=== PATIENT | male | born 1955 | race Hispanic/Latino ===

== ENCOUNTER 2020-03-08 21:30 | Emergency (ER) | payer MEDICARE ==
[2020-03-08 21:52] VITALS: BP 140/84
[2020-03-08] MEDS ORDERED: KETOROLAC 30 MG/1 ML INJ IM ONE (22:21)
--- NOTE | 2020-03-08 22:37 | Emergency Department Report ---
HPI - General Chief Complaint: Back Pain/Injury Time Seen by Provider: 03/08/20 22:21 - HPI HPI: This is a 64-year-old male presents to the emergency department with complaint of some pain to the right lower back and the right thigh that has been going on for the past 3 to 4 months. The patient says that he came into the emergency department this evening because "I could not stand the pain." He denies any numbness or paresthesias, swelling to the extremities, rash or lesions, fever. Patient is able to ambulate and has full range of motion. He denies any fall, injury or any known inciting event. He denies any past medical history. He has tried some Tylenol for symptoms without any relief. ED Past Medical Hx - Past Medical History Previous Medical History?: Yes Additional medical history: Back pain - Surgical History Past Surgical History?: No - Social History Smoking Status: Never Smoker Substance Use Type: None - Medications Home Medications: Home Medications Medication Instructions Recorded Confirmed Last Taken Type Cyclobenzaprine [Flexeril] 10 mg PO TID PRN #12 tablet 03/08/20 Unknown Rx Ibuprofen [Motrin 800 MG tab] 800 mg PO Q8HR PRN #20 tablet 03/08/20 Unknown Rx ED Review of Systems ROS: Stated complaint: BACK PAIN Other details as noted in HPI Comment: All other systems reviewed and negative Constitutional: denies: chills, fever Respiratory: denies: shortness of breath Cardiovascular: denies: chest pain Gastrointestinal: denies: abdominal pain Musculoskeletal: back pain, myalgia Neurological: denies: numbness, paresthesias Physical Exam - Physical Exam Vital Signs: Vital Signs 03/08/20 03/08/20 21:46 21:59 Temperature 98.1 F Pulse Rate 65 Respiratory 18 Rate Blood Pressure 140/84 O2 Sat by Pulse 98 Oximetry Physical Exam: GENERAL: The patient is well-developed well-nourished. HENT: Normocephalic. Atraumatic. Patient has moist mucous membranes. EYES: Extraocular motions are intact. NECK: Supple. Trachea is midline. CHEST/LUNGS: Clear to auscultation. There is no respiratory distress noted. HEART/CARDIOVASCULAR: Regular. There is no tachycardia. ABDOMEN: Abdomen is soft, nontender. Patient has normal bowel sounds. SKIN: Skin is warm and dry. NEURO: The patient is awake, alert, and oriented. The patient is cooperative. The patient has no focal neurologic deficits. Normal speech. Muscle strength 5 out of 5 upper and lower extremities bilaterally. MUSCULOSKELETAL: There is no tenderness or deformity. There is no limitation range of motion. BACK: No midline thoracic or lumbar tenderness to palpation. There is some reproducible right paraspinal lumbar tenderness to palpation. ED Course Vital Signs 03/08/20 03/08/20 21:46 21:59 Temperature 98.1 F Pulse Rate 65 Respiratory 18 Rate Blood Pressure 140/84 O2 Sat by Pulse 98 Oximetry ED Medical Decision Making - Radiology Data Radiology results: report reviewed LUMBAR SPINE HISTORY: Low back pain COMPARISON: None. TECHNIQUE: 3 view(s) of the lumbar spine obtained. FINDINGS: Vertebrae: Normal alignment. No displaced fracture or significant abnormality. Disc Spaces:Moderate multilevel degenerative disc disease, most prominent at L5-S1. Facet Joints:Moderate facet hypertrophy in the mid to lower lumbar spine. Additional findings: Probable calcified gallstone. Aortic atherosclerosis. IMPRESSION: 1. Moderate multilevel degenerative change of the spine. No acute abnormality. - Medical Decision Making This patient presents to the emergency department with complaint of right lower back pain with some radiation down towards the right hip and thigh that has been going on for many months. Patient does not have any fall, trauma or any inciting event. He denies any numbness or paresthesias, problems with bowel or bladder, difficulty with ambulation, or any other neurological deficits. He denies any swelling to the right lower extremity, rash or lesions. There is no midline thoracic or lumbar tenderness to palpation, but there is reproducible right paraspinal lumbar tenderness to palpation. An x-ray was done that shows multi level degenerative changes, but otherwise no fracture, subluxation, or any other acute processes. Patient was given a shot of Toradol with some improvement. His pain score is down to a 4 out of 10. He has no abdominal pain. There is no palpable midline abdominal mass. The pain is reproducible to palpation. It appears to be something musculoskeletal with perhaps some radicular pain or peripheral neuropathy. The patient will be given a prescription for anti-inflammatories and a muscle relaxer. He has been given referrals for outpatient orthopedic follow-up. He will return to the emergency department with any worsening of his symptoms or with any acute distress. Critical Care Time: No Critical care attestation.: If time is entered above; I have spent that time in minutes in the direct care of this critically ill patient, excluding procedure time. ED Disposition Clinical Impression: Back pain Qualifiers: Back pain location: low back pain Chronicity: unspecified Back pain laterality: right Sciatica presence: unspecified whether sciatica present Qualified Code(s): M54.5 - Low back pain Osteoarthritis of lumbar spine Qualifiers: Spinal osteoarthritis complication: unspecified spinal osteoarthritis Qualified Code(s): M47.816 - Spondylosis without myelopathy or radiculopathy, lumbar region Disposition: TO HOME OR SELFCARE Is pt being admited?: No Condition: Stable Instructions: Radicular Pain, Chronic Back Pain Additional Instructions: Please follow-up with a primary care physician in the next few days. I am giving you a referral for to local orthopedic groups, Dr. Vaughn and Darrick, to follow-up regarding your back pain. Return to the emergency department with any worsening of your symptoms, new or concerning symptoms not addressed during this current emergency department visit, or with any acute distress. You have been prescribed a medication that is sedating and therefore should not be taken prior to driving, working, and responsible for children and in no way should be mixed with alcohol of any quantity. Prescriptions: Cyclobenzaprine [Flexeril] 10 mg PO TID PRN #12 tablet PRN Reason: Muscle Spasm Ibuprofen [Motrin 800 MG tab] 800 mg PO Q8HR PRN #20 tablet PRN Reason: Pain , Severe (7-10) Referrals: PRIMARY CAREMD [Primary Care Provider] - 3-5 Days TRACEY VAUGHN MD [Staff Physician] - 3-5 Days [facility] [Provider Group] - 3-5 Days Time of Disposition: 23:23
--- NOTE | 2020-03-08 23:12 | XRay Report ---
LUMBAR SPINE HISTORY: Low back pain COMPARISON: None. TECHNIQUE: 3 view(s) of the lumbar spine obtained. FINDINGS: Vertebrae: Normal alignment. No displaced fracture or significant abnormality. Disc Spaces:Moderate multilevel degenerative disc disease, most prominent at L5-S1. Facet Joints:Moderate facet hypertrophy in the mid to lower lumbar spine. Additional findings: Probable calcified gallstone. Aortic atherosclerosis. IMPRESSION: 1. Moderate multilevel degenerative change of the spine. No acute abnormality. Signer Name: Delisa Adamson MD Signed: 03/08/2020 11:07 PM Workstation Name: [id number]
== END 2020-03-08 23:40 | disposition home or self-care (01) ==
LOC: ED 21:30
DX: M47.896 Other spondylosis, lumbar region (principal)
CPT/HCPCS: 72100; 96372; 99283; J1885

== ENCOUNTER 2020-06-14 22:05 | Emergency (ER) | payer MEDICARE ==
[2020-06-14 22:18] VITALS: BP 153/90
--- NOTE | 2020-06-14 22:24 | Emergency Department Report ---
ED General Adult HPI - General Chief complaint: Extremity Injury, Lower Stated complaint: LEG PAIN Time Seen by Provider: 06/14/20 22:18 Source: patient Mode of arrival: Stretcher Limitations: No Limitations - History of Present Illness Initial comments: 64-year-old male with asthma department complaining of chronic atraumatic history of right hip and back pain which is flared up and causing some aggravation on yesterday and today she presented to the emergency department seeking pain medication. Reports no numbness, no tingling, no loss of bowel or bladder, no saddle paresthesias, no fever, chills, sweats, no chest pain, no palpitations, no hematuria, no dysuria. Radiation: non-radiation Quality: dull Consistency: constant Improves with: none Worsens with: none Associated Symptoms: denies other symptoms - Related Data Previous Rx's Medication Instructions Recorded Last Taken Type Cyclobenzaprine [Flexeril] 10 mg PO TID PRN #12 tablet 03/08/20 Unknown Rx Ibuprofen [Motrin 800 MG tab] 800 mg PO Q8HR PRN #20 tablet 03/08/20 Unknown Rx Meloxicam [Mobic] 15 mg PO DAILY #10 tablet 06/14/20 Unknown Rx Allergies Allergy/AdvReac Type Severity Reaction Status Date / Time No Known Allergies Allergy Unverified 05/28/13 08:30 ED Review of Systems ROS: Stated complaint: LEG PAIN Other details as noted in HPI Comment: All other systems reviewed and negative ED Past Medical Hx - Past Medical History Previous Medical History?: Yes Additional medical history: Back pain. Chronic leg pain - Surgical History Past Surgical History?: No - Social History Smoking Status: Current Every Day Smoker Substance Use Type: None - Medications Home Medications: Home Medications Medication Instructions Recorded Confirmed Last Taken Type Cyclobenzaprine [Flexeril] 10 mg PO TID PRN #12 tablet 03/08/20 Unknown Rx Ibuprofen [Motrin 800 MG tab] 800 mg PO Q8HR PRN #20 tablet 03/08/20 Unknown Rx Meloxicam [Mobic] 15 mg PO DAILY #10 tablet 06/14/20 Unknown Rx ED Physical Exam - General Limitations: No Limitations General appearance: alert, in no apparent distress - Head Head exam: Present: atraumatic, normocephalic - Eye Eye exam: Present: normal appearance, PERRL, EOMI Pupils: Present: normal accommodation - ENT ENT exam: Present: normal exam, normal orophraynx, mucous membranes moist, TM's normal bilaterally - Neck Neck exam: Present: normal inspection, full ROM - Respiratory Respiratory exam: Present: normal lung sounds bilaterally. Absent: respiratory distress - Cardiovascular Cardiovascular Exam: Present: regular rate, normal rhythm. Absent: systolic murmur, diastolic murmur, rubs, gallop - GI/Abdominal GI/Abdominal exam: Present: soft, normal bowel sounds - Rectal Rectal exam: Present: deferred - Extremities Exam Extremities exam: Present: normal inspection - Back Exam Back exam: Present: normal inspection - Neurological Exam Neurological exam: Present: alert, oriented X3 - Psychiatric Psychiatric exam: Present: normal affect, normal mood - Skin Skin exam: Present: warm, dry, intact, normal color. Absent: rash ED Course Vital Signs 06/14/20 22:12 Temperature 98 F Pulse Rate 91 H Respiratory 16 Rate Blood Pressure 153/90 O2 Sat by Pulse 100 Oximetry Critical care attestation.: If time is entered above; I have spent that time in minutes in the direct care of this critically ill patient, excluding procedure time. ED Disposition Clinical Impression: Chronic low back pain Disposition: DC-01 TO HOME OR SELFCARE Is pt being admited?: No Does the pt Need Aspirin: No Condition: Stable Instructions: Chronic Pain, Adult Prescriptions: Meloxicam [Mobic] 15 mg PO DAILY #10 tablet Referrals: PRIMARY CARE, [Primary Care Provider] - 3-5 Days TRACEY LOMELI MD [Staff Physician] - 3-5 Days
== END 2020-06-14 23:48 | disposition home or self-care (01) ==
LOC: ED 22:05
DX: M54.5 Low back pain (principal); G89.29 Other chronic pain; F17.200 Nicotine dependence, unspecified, uncomplicated; Z79.899 Other long term (current) drug therapy
CPT/HCPCS: 99283

== ENCOUNTER 2020-11-12 14:40 | Emergency (ER) | payer MEDICARE ==
[2020-11-12 15:52] VITALS: BP 170/97
[2020-11-12] MEDS ORDERED: HYDROcodone/ACETAMINOPHEN 10-325MG TAB PO ONE (17:37)
[2020-11-12 17:45] LABS: Basophils # (Auto) 0.1 K/mm3 (0.0-0.1); Basophils % (Auto) 1.1 % (0.0-1.8); Eosinophils # (Auto) 0.2 K/mm3 (0.0-0.4); Eosinophils % (Auto) 2.7 % (0.0-4.3); Lymphocytes # (Auto) 1.6 K/mm3 (1.2-5.4); Lymphocytes % (Auto) 22.7 % (13.4-35.0); Mean Corpuscular HGB Conc 36 % (32-34); Mean Corpuscular Volume 93 fl (84-94); Monocytes # (Auto) 0.6 K/mm3 (0.0-0.8); Monocytes % (Auto) 8.2 % (0.0-7.3); Platelet Count 157 K/mm3 (140-440); Red Blood Count 4.53 M/mm3 (3.65-5.03); Red Cell Distribution Width 13.5 % (13.2-15.2)
[2020-11-12 17:46] LABS: Hematocrit 42.1 % (35.5-45.6); Hemoglobin 15.1 gm/dl (11.8-15.2)
[2020-11-12 18:08] LABS: Alanine Aminotransferase 13 units/L (7-56); Albumin 4.5 g/dL (3.9-5); BUN/Creatinine Ratio 15; Blood Urea Nitrogen 12 mg/dL (9-20); Calcium 9.4 mg/dL (8.4-10.2); Hemolysis Index 42
--- NOTE | 2020-11-12 18:23 | XRay Report ---
XR femur 2+V RT INDICATION / CLINICAL INFORMATION: right hip/femur pain. COMPARISON: None available. FINDINGS: BONES/JOINT(S): No acute fracture or subluxation. Mild DJD in the right hip joint and right knee join t. SOFT TISSUES: No significant abnormality. ADDITIONAL FINDINGS: None. Signer Name: Shon Reyes MD Signed: 11/12/2020 6:19 PM Workstation Name: [id number]
--- NOTE | 2020-11-12 18:23 | Vascular Lab Report ---
DUPLEX DOPPLER LOWER EXTREMITY VEINS, RIGHT INDICATION / CLINICAL INFORMATION: right leg pain. TECHNIQUE: Duplex doppler imaging was performed through the veins of the right lower extremity using venous comp ression and other maneuvers. COMPARISON: None available. FINDINGS: RIGHT COMMON FEMORAL VEIN: Negative. RIGHT FEMORAL VEIN: Negative. RIGHT POPLITEAL VEIN: Negative. RIGHT CALF VEINS: Negative. ADDITIONAL FINDINGS: None. IMPRESSION: 1. No sonographic evidence for DVT in the right lower extremity. Signer Name: Shon Reyes MD Signed: 11/12/2020 6:18 PM Workstation Name: [id number]
--- NOTE | 2020-11-12 18:25 | Emergency Department Report ---
ED Lower Extremity HPI - General Chief Complaint: Extremity Problem,Nontraumatic Stated Complaint: HIP AND LEG PAIN FOR A WEEK Time Seen by Provider: 11/12/20 17:16 Source: patient Mode of arrival: Ambulatory Limitations: No Limitations - History of Present Illness Initial Comments: This is a 65-year-old male nontoxic, well nourished in appearance, no acute signs of distress presents to the ED with c/o of right hip and posterior thigh pain 2 weeks. Patient denies any injuries or trauma. Patient denies any numbness, tingling, fever, chills, nausea, vomiting, chest pain, shortness of breath, headache, stiff neck. Patient denies any joint swelling or joint redness. Patient denies decreased range of motion. Patient stated has decreased gait due to pain. Patient denies any allergies. MD Complaint: hip injury, thigh injury -: week(s) Injury: Hip: Left, Thigh: Left Severity: mild Severity scale (0 -10): 8 Improves With: immobilization Worsens With: weight bearing, movement, palpation Associated Symptoms: able to partially bear weight. denies: snap/pop sensation, swelling, numbness, tingling, unable to bear weight - Related Data Previous Rx's Medication Instructions Recorded Last Taken Type Cyclobenzaprine [Flexeril] 10 mg PO TID PRN #12 tablet 03/08/20 Unknown Rx Ibuprofen [Motrin 800 MG tab] 800 mg PO Q8HR PRN #20 tablet 03/08/20 Unknown Rx Meloxicam [Mobic] 15 mg PO DAILY #10 tablet 06/14/20 Unknown Rx Cyclobenzaprine [Flexeril] 10 mg PO QHS PRN #10 tablet 11/12/20 Unknown Rx Naproxen 500 mg PO Q12H PRN #12 tablet 11/12/20 Unknown Rx Allergies Allergy/AdvReac Type Severity Reaction Status Date / Time No Known Allergies Allergy Unverified 05/28/13 08:30 ED Review of Systems ROS: Stated complaint: HIP AND LEG PAIN FOR A WEEK Other details as noted in HPI Comment: All other systems reviewed and negative Constitutional: denies: chills, fever Eyes: denies: eye pain, eye discharge, vision change ENT: denies: ear pain, throat pain Respiratory: denies: cough, shortness of breath, wheezing Cardiovascular: denies: chest pain, palpitations Endocrine: no symptoms reported Gastrointestinal: denies: abdominal pain, nausea, diarrhea Genitourinary: denies: urgency, dysuria Musculoskeletal: denies: back pain, joint swelling, arthralgia Skin: denies: rash, lesions Neurological: denies: headache, weakness, paresthesias Psychiatric: denies: anxiety, depression Hematological/Lymphatic: denies: easy bleeding, easy bruising ED Past Medical Hx - Past Medical History Previous Medical History?: Yes Hx Diabetes: Yes Hx Psychiatric Treatment: Yes (schizophrenic, paranoia) Additional medical history: Back pain. Chronic leg pain. high cholestrol - Social History Smoking Status: Current Every Day Smoker - Medications Home Medications: Home Medications Medication Instructions Recorded Confirmed Last Taken Type Cyclobenzaprine [Flexeril] 10 mg PO TID PRN #12 tablet 03/08/20 Unknown Rx Ibuprofen [Motrin 800 MG tab] 800 mg PO Q8HR PRN #20 tablet 03/08/20 Unknown Rx Meloxicam [Mobic] 15 mg PO DAILY #10 tablet 06/14/20 Unknown Rx Cyclobenzaprine [Flexeril] 10 mg PO QHS PRN #10 tablet 11/12/20 Unknown Rx Naproxen 500 mg PO Q12H PRN #12 tablet 11/12/20 Unknown Rx ED Physical Exam - General Limitations: No Limitations General appearance: alert, in no apparent distress - Head Head exam: Present: atraumatic, normocephalic - Eye Eye exam: Present: normal appearance - Neck Neck exam: Present: normal inspection, full ROM. Absent: lymphadenopathy - Respiratory Respiratory exam: Present: normal lung sounds bilaterally. Absent: respiratory distress, wheezes, rales, rhonchi, stridor, chest wall tenderness, accessory muscle use, decreased breath sounds, prolonged expiratory - Cardiovascular Cardiovascular Exam: Present: regular rate, normal rhythm, normal heart sounds. Absent: bradycardia, tachycardia, irregular rhythm, systolic murmur, diastolic murmur, rubs, gallop - GI/Abdominal GI/Abdominal exam: Present: soft, normal bowel sounds. Absent: distended, tenderness, guarding, rebound, rigid, diminished bowel sounds - Extremities Exam Extremities exam: Present: normal inspection, full ROM, tenderness, normal capillary refill. Absent: pedal edema, joint swelling, calf tenderness - Expanded Lower Extremity Exam Left Hip exam: Present: normal inspection, full ROM, tenderness, external rotation, internal rotation, pelvic stability. Absent: swelling, abrasion, laceration, ecchymosis, deformity, crepidus, dislocation, erythema, shortening Upper Leg exam: Present: normal inspection, full ROM, tenderness. Absent: swelling, abrasion, laceration, ecchymosis, deformity, crepidus, dislocation, erythema Knee exam: Present: normal inspection, full ROM, full knee extension. Absent: tenderness, swelling, abrasion, laceration, ecchymosis, deformity, crepidus, dislocation, erythema, effusion, pain w/ pronation/supination, posterior draw sign, pain/laxity with valgus, pain/laxity with varus Lower Leg exam: Present: normal inspection, full ROM. Absent: tenderness, swelling, abrasion, laceration, ecchymosis, deformity, crepidus, dislocation, erythema, palpable cord, Cleo's sign Ankle exam: Present: normal inspection, full ROM. Absent: tenderness, swelling, abrasion, laceration, ecchymosis, deformity, crepidus, dislocation, erythema, anterior draw sign Foot/Toe exam: Present: normal inspection, full ROM. Absent: tenderness, swell ing, abrasion, laceration, ecchymosis, crepidus, dislocation, erythema, amputation, puncture wound, foreign body, calcaneal tenderness, tenderness at base of 5th metatarsal, nail avulsion, subungual hematoma Neuro vascular tendon exam: Present: no vascular compromise. Absent: pulse deficit, abnormal cap refill, sensory deficit, extremity cold to touch, pallor, abnormal 2-point discrimination, decreased fine/light touch, foot drop, significant pain with passive ROM of distal joint Gait: Positive: observed and limited by pain - Back Exam Back exam: Present: normal inspection, full ROM. Absent: tenderness, CVA tenderness (R), CVA tenderness (L), muscle spasm, paraspinal tenderness, vertebral tenderness, rash noted - Neurological Exam Neurological exam: Present: alert, oriented X3 - Psychiatric Psychiatric exam: Present: normal affect, normal mood - Skin Skin exam: Present: warm, dry, intact, normal color. Absent: rash ED Course Vital Signs 11/12/20 15:49 Temperature 98.6 F Pulse Rate 80 Respiratory 18 Rate Blood Pressure 170/97 O2 Sat by Pulse 96 Oximetry - Reevaluation(s) Reevaluation #1: 11/12/20 18:28 Patient is speaking in full sentences with no signs of distress noted. ED Lower Extremity MDM - Lab Data Result diagrams: 11/12/20 17:37 11/12/20 17:37 Lab Results 11/12/20 11/12/20 Range/Units 17:37 17:37 WBC 6.9 (4.5-11.0) K/mm3 RBC 4.53 (3.65-5.03) M/mm3 Hgb 15.1 (11.8-15.2) gm/dl Hct 42.1 (35.5-45.6) % MCV 93 (84-94) fl MCH 33 H (28-32) pg MCHC 36 H (32-34) % RDW 13.5 (13.2-15.2) % Plt Count 157 (140-440) K/mm3 Lymph % (Auto) 22.7 (13.4-35.0) % [place] % (Auto) 8.2 H (0.0-7.3) % Eos % (Auto) 2.7 (0.0-4.3) % Baso % (Auto) 1.1 (0.0-1.8) % Lymph # (Auto) 1.6 (1.2-5.4) K/mm3 [place] # (Auto) 0.6 (0.0-0.8) K/mm3 Eos # (Auto) 0.2 (0.0-0.4) K/mm3 Baso # (Auto) 0.1 (0.0-0.1) K/mm3 Seg Neutrophils % 65.3 (40.0-70.0) % Seg Neutrophils # 4.5 (1.8-7.7) K/mm3 Sodium 134 L (137-145) mmol/L Potassium 4.0 (3.6-5.0) mmol/L Chloride 98.3 (98-107) mmol/L Carbon Dioxide 29 (22-30) mmol/L Anion Gap 11 mmol/L BUN 12 (9-20) mg/dL Creatinine 0.8 (0.8-1.3) mg/dL Estimated GFR > 60 ml/min BUN/Creatinine Ratio 15 % Glucose 205 H (75-100) mg/dL Calcium 9.4 (8.4-10.2) mg/dL Total Bilirubin 0.40 (0.1-1.2) mg/dL AST 14 (5-40) units/L ALT 13 (7-56) units/L Alkaline Phosphatase 45 (35-129) units/L Total Creatine Kinase 77 (55-170) units/L Total Protein 6.4 (6.3-8.2) g/dL Albumin 4.5 (3.9-5) g/dL Albumin/Globulin Ratio 2.4 % - Radiology Data [address] [address] XRay Report Signed Patient: HONORIO RICO MR#: [id number] : 1955 A cct:[id number] Age/Sex: 65 / M ADM Date: 11/12/20 Loc: ED Attending Dr: Ordering Physician: ZACKERY POWERS NP Date of Service: 11/12/20 Procedure(s): XR hip 2-3V RT Accession Number(s): [id number] cc: ZACKERY POWERS NP Fluoro Time In Minutes: XR hip 2-3V RT INDICATION / CLINICAL INFORMATION: Right hip pain. COMPARISON: None available. FINDINGS: BONES/JOINT(S): No acute fracture or subluxation. Mild bilateral hip DJD. No focal bone lesion. SOFT TISSUES: No significant abnormality. ADDITIONAL FINDINGS: None. Signer Name: Shon Reyes MD Signed: 11/12/2020 6:19 PM Workstation Name: [id number] Transcribed By: JOSE Dictated By: Shon Reyes MD Electronically Authenticated By: Shon Reyes MD Signed Date/Time: 11/12/201818 DD/ 18 TD/TT: [address] [address] XRay Report Signed Patient: HONORIO RICO MR#: [id number] : 1955 Acct:[id number] Age/Sex: 65 / M ADM Date: 11/12/20 Loc: ED Attending Dr: Ordering Physician: ZACKERY POWERS NP Date of Service: 11/12/20 Procedure(s): XR femur 2+V RT Accession Number(s): [id number] cc: ZACKERY POWERS NP Fluoro Time In Minutes: XR femur 2+V RT INDICATION / CLINICAL INFORMATION: right hip/femur pain. COMPARISON: None available. FINDINGS: BONES/JOINT(S): No acute fracture or subluxation. Mild DJD in the right hip joint and right knee joint. SOFT TISSUES: No significant abnormality. ADDITIONAL FINDINGS: None. Signer Name: Shon Reyes MD Signed: 11/12/2020 6:19 PM Workstation Name: [id number] Transcribed By: JOSE Dictated By: Shon Reyes MD Electronically Authenticated By: Shon Reyes MD Signed Date/Time: 11/12/201818 DD/ 17 TD/TT: [facility] [address] [place] [address] Vascular Lab Report Signed Patient: HONORIO RICO MR#: [id number] : 1955 Acct:[id number] Age/Sex: 65 / M ADM Date: 11/12/20 Loc: ED Attending Dr: Ordering Physician: ZACKERY POWERS NP Date of Service: 11/12/20 Procedure(s): VL venous duplex LE RT Accession Number(s): [id number] cc: ZACKERY POWERS NP DUPLEX DOPPLER LOWER EXTREMITY VEINS, RIGHT INDICATION / CLINICAL INFORMATION: right leg pain. TECHNIQUE: Duplex doppler imaging was performed t hrough the veins of the right lower extremity using venous compression and other maneuvers. COMPARISON: None available. FINDINGS: RIGHT COMMON FEMORAL VEIN: Negative. RIGHT FEMORAL VEIN: Negative. RIGHT POPLITEAL VEIN: Negative. RIGHT CALF VEINS: Negative. ADDITIONAL FINDINGS: None. IMPRESSION: 1. No sonographic evidence for DVT in the right lower extremity. Signer Name: Shon Reyes MD Signed: 11/12/2020 6:18 PM Workstation Name: [id number] Transcribed By: JOSE Dictated By: Shon Reyes MD Electronically Authenticated By: Shon Reyes MD Signed Date/Time: 11/12/201817 DD/ 17 TD/TT: - Medical Decision Making This is a 65-year-old male that presents with left leg strain. Patient is stable and was examined by me. I referred patient to an orthopedic doctor for further evaluation for possible MRI. X-ray/Doppler ultrasound has been obtained and dictated by the radiologist. Patient is notified of the lab results with no questions noted by the patient. Patient is notified of the imaging report with noted by the patient. Patient does have normal gait with no tenderness and no joint swelling. No ecchymosis. no joint redness or swelling. Not warm to touch. No signs of cellulites present. Patient received a knee immobilize and patient stated has a walker at home. Patient was instructed to RICE therapy. Patient received pain medication which stated symptoms improved and subsided. Patient stated family member will drive the patient home after discharge due to possible drowsiness patient is discharged with Flexeril and Motrin. At time of discharge, the patient does not seem toxic or ill in appearance. No acute signs of distress noted. Patient agrees to discharge treatment plan of care. No further questions noted by the patient. Critical care attestation.: If time is entered above; I have spent that time in minutes in the direct care of this critically ill patient, excluding procedure time. ED Disposition Clinical Impression: Strain of right hip and thigh Qualifiers: Encounter type: initial encounter Qualified Code(s): S76.011A - Strain of muscle, fascia and tendon of right hip, initial encounter; S76.911A - Strain of unspecified muscles, fascia and tendons at thigh level, right thigh, initial encounter Disposition: DC- TO HOME OR SELFCARE Is pt being admited?: No Does the pt Need Aspirin: No Condition: Stable Instructions: Cyclobenzaprine tablets Additional Instructions: Follow-up with a orthopedic doctor in 3-5 days or if symptoms worsen and continue return to emergency room as soon as possible. Take Naproxen and Flexeril as prescribed. Do not operate heavy machinery while taking Flexeril due to sedation Prescriptions: Cyclobenzaprine [Flexeril] 10 mg PO QHS PRN #10 tablet PRN Reason: Muscle Spasm Naproxen 500 mg PO Q12H PRN #12 tablet PRN Reason: Pain , Severe (7-10) Referrals: PRIMARY CARE, [Primary Care Provider] - 3-5 Days ANTHONY MIN MD [Staff Physician] - 3-5 Days TRACEY LOMELI MD [Staff Physician] - 3-5 Days Time of Disposition: 19:53
== END 2020-11-12 20:20 | disposition home or self-care (01) ==
LOC: ED 14:40
DX: S76.011A Strain of muscle, fascia and tendon of right hip, initial encounter (principal); E11.9 Type 2 diabetes mellitus without complications; F20.9 Schizophrenia, unspecified; F17.200 Nicotine dependence, unspecified, uncomplicated; Z79.899 Other long term (current) drug therapy; X58.XXXA Exposure to other specified factors, initial encounter; Y93.89 Activity, other specified; Y92.89 Other specified places as the place of occurrence of the external cause; Y99.8 Other external cause status
CPT/HCPCS: 36415; 80053; 82550; 85025